=== PATIENT | female | born 1955 | race Caucasian/White ===

== ENCOUNTER 2019-11-09 12:58 | Outpatient (CLI) | payer MEDICARE ==
--- NOTE | 2019-11-09 20:35 | ULT ---
BILATERAL RENAL ULTRASOUND: 11/09/19 Ultrasonography of the urinary tract was performed. The right kidney measures 10.2 x 5.0 x 4.6 cm and the left kidney measures 9.9 x 4.4 x 5.6 cm. No mas s or hydronephrosis was seen in either. The cortex is normal in thickness bilaterally and the cortica l echogenicity is normal as well. The urinary bladder contain no internal defects. Voiding was nearly complete. IMPRESSION: No significant urinary tract findings. POS: HOME
== END 2019-11-09 12:59 | disposition home or self-care (01) ==
LOC: BURULT 12:58
PROVIDERS: ATTEND Family Medicine
DX: N39.0 Urinary tract infection, site not specified (principal)
CPT/HCPCS: 76770